=== PATIENT | female | born 1945 | race African-American/Black ===

== ENCOUNTER 2020-03-06 10:20 | Emergency (ER) | payer MEDICAID, MEDICARE ==
[~2020-03-06] VITALS: Ht 165.1 cm; Wt 82.0 kg
[2020-03-06] MEDS ORDERED: fentaNYL PF VIAL 100 MCG/2 ML VIAL IV PRN (11:15)
[2020-03-06 11:21] LABS: BASO % 0 % (0-3); EOS # 0.1 x10^3/uL (0.0-0.7); EOS % 1 % (0-3); HEMATOCRIT 34.6 % (36.0-47.0); HEMOGLOBIN 11.5 g/dL (12.0-15.5); LYMPH % 41 % (24-48); MEAN CORPUSCULAR HEMOGLOBIN 26 pg (25-35); MEAN CORPUSCULAR HGB CONC 33 g/dL (31-37); MEAN CORPUSCULAR VOLUME 77 fL (79-100); MONO # 0.5 x10^3/uL (0.0-1.1); MONO % 7 % (0-9); NEUT # 3.7 x10^3/uL (1.8-7.7); NEUT % 50 % (31-73); PLATELET COUNT 289 x10^3/uL (140-400); RED BLOOD COUNT 4.49 x10^6/uL (3.50-5.40); WHITE BLOOD COUNT 7.3 x10^3/uL (4.0-11.0)
[2020-03-06 11:33] LABS: PROTHROMBIN TIME PATIENT 13.3 SEC (11.7-14.0)
[2020-03-06 11:40] LABS: CREATININE 1.5 mg/dL (0.6-1.0); POTASSIUM 3.3 mmol/L (3.5-5.1)
[2020-03-06 11:45] LABS: ALBUMIN 3.3 g/dL (3.4-5.0); ALBUMIN/GLOBULIN RATIO 0.8 (1.0-1.7); MAGNESIUM 2.3 mg/dL (1.8-2.4); TOTAL BILIRUBIN 0.2 mg/dL (0.2-1.0); TOTAL PROTEIN 7.7 g/dL (6.4-8.2)
[2020-03-06 11:51] LABS: D-DIMER 1.02 ug/mlFEU (0.00-0.50)
--- NOTE | 2020-03-06 12:02 | RAD ---
PORTABLE CHEST 1V History: Reason: chest pain Comparison: August 03, 2007 Findings: No consolidation or pleural effusion. Normal heart size. No pneumothorax. Increased density overlying the left chest likely related to overlying structures. Prior median sternotomy. Postop changes left axilla. Impression: 1. No acute cardiopulmonary process. Electronically signed by: Eliel Chand DO (03/06/2020 11:59 AM) [id number]
--- NOTE | 2020-03-06 12:07 | ED.ADGEN ---
Past Medical History Past Medical History: Diabetes-Type II, High Cholesterol, Hypertension, MA Additional Past Medical Histor: neoplasm- pituitary gland, malignant neoplasm of breast Past Surgical History: Coronary Bypass Surgery Smoking Status: Never Smoker Alcohol Use: None Adult General Chief Complaint Chief Complaint: CHEST PAIN HPI HPI Patient is a 74 year old with chest pain since waking up this morning. His pain is substernal and is and epigastric as sharp, has gotten worse. No other symptoms, no injuries or cough. Denies diaphoresis, shortness of breath, lightheadedness, nausea. Has a history of MA but cannot recall if this pain is similar. Review of Systems Review of Systems Constitutional: Denies fever or chills. [] Eyes: Denies change in visual acuity. [] HENT: Denies nasal congestion or sore throat. [] Respiratory: Denies cough or shortness of breath. [] Cardiovascular: Chest pain GI: Denies abdominal pain, nausea, vomiting, bloody stools or diarrhea. [] : Denies dysuria. [] Musculoskeletal: Denies back pain or joint pain. [] Integument: Denies rash. [] Neurologic: Denies headache, focal weakness or sensory changes. [] Endocrine: Denies polyuria or polydipsia. [] Lymphatic: Denies swollen glands. [] Psychiatric: Denies depression or anxiety. [] Current Medications Current Medications Current Medications Medications (Trade) Dose Ordered Sig/Jennifer Start Time Stop Time Status Last Admin Dose Admin Fentanyl Citrate (Fentanyl 2ml Vial) 25 mcg PRN Q15MIN PRN 03/06/20 11:15 03/07/20 11:14 Allergies Allergies Allergies Coded Allergies Type Severity Reaction Last Updated Verified Penicillins Allergy Unknown 03/06/20 Yes atorvastatin Allergy Unknown 03/06/20 Yes gabapentin Allergy Unknown 03/06/20 Yes metformin Allergy Unknown 03/06/20 Yes Physical Exam Physical Exam Constitutional: Well developed, well nourished, no acute distress, non-toxic appearance. [] HENT: Normocephalic, atraumatic, bilateral external ears normal, oropharynx moist, no oral exudates, nose normal. [] Eyes: PERRLA, EOMI, conjunctiva normal, no discharge. [] Neck: Normal range of motion, no tenderness, supple, no stridor. [] Cardiovascular:Heart rate regular rhythm, no murmur [] Lungs & Thorax: Bilateral breath sounds clear to auscultation [] Abdomen: Bowel sounds normal, soft, no tenderness, no masses, no pulsatile masses. [] Skin: Warm, dry, no erythema, no rash. [] Back: No tenderness, no CVA tenderness. [] Extremities: No tenderness, no cyanosis, no clubbing, ROM intact, no edema. [] Neurologic: Alert and oriented X 3, normal motor function, normal sensory function, no focal deficits noted. [] Psychologic: Affect normal, judgement normal, mood normal. [] Current Patient Data Vital Signs Vital Signs Date Time Temp Pulse Resp B/P (MAP) Pulse Ox O2 Delivery O2 Flow Rate FiO2 03/06/20 14:56 64 16 135/64 (87) 96 Room Air 03/06/20 10:36 99.2 99.2 Lab Values Laboratory Tests Test 03/06/20 11:13 03/06/20 14:23 White Blood Count 7.3 x10^3/uL (4.0-11.0) Red Blood Count 4.49 x10^6/uL (3.50-5.40) Hemoglobin 11.5 g/dL (12.0-15.5) L Hematocrit 34.6 % (36.0-47.0) L Mean Corpuscular Volume 77 fL (79-100) L Mean Corpuscular Hemoglobin 26 pg (25-35) Mean Corpuscular Hemoglobin Concent 33 g/dL (31-37) Red Cell Distribution Width 19.0 % (11.5-14.5) H Platelet Count 289 x10^3/uL (140-400) Neutrophils (%) (Auto) 50 % (31-73) Lymphocytes (%) (Auto) 41 % (24-48) Monocytes (%) (Auto) 7 % (0-9) Eosinophils (%) (Auto) 1 % (0-3) Basophils (%) (Auto) 0 % (0-3) Neutrophils # (Auto) 3.7 x10^3/uL (1.8-7.7) Lymphocytes # (Auto) 3.0 x10^3/uL (1.0-4.8) Monocytes # (Auto) 0.5 x10^3/uL (0.0-1.1) Eosinophils # (Auto) 0.1 x10^3/uL (0.0-0.7) Basophils # (Auto) 0.0 x10^3/uL (0.0-0.2) Prothrombin Time 13.3 SEC (11.7-14.0) Prothrombin Time INR 1.1 (0.8-1.1) D-Dimer (Bharati) 1.02 ug/mlFEU (0.00-0.50) H Sodium Level 140 mmol/L (136-145) Potassium Level 3.3 mmol/L (3.5-5.1) L Chloride Level 104 mmol/L (98-107) Carbon Dioxide Level 29 mmol/L (21-32) Anion Gap 7 (6-14) Blood Urea Nitrogen 16 mg/dL (7-20) Creatinine 1.5 mg/dL (0.6-1.0) H Estimated GFR (Cockcroft-Gault) 41.0 BUN/Creatinine Ratio 11 (6-20) Glucose Level 208 mg/dL (70-99) H Calcium Level 9.0 mg/dL (8.5-10.1) Magnesium Level 2.3 mg/dL (1.8-2.4) Total Bilirubin 0.2 mg/dL (0.2-1.0) Aspartate Amino Transferase (AST) 11 U/L (15-37) L Alanine Aminotransferase (ALT) 11 U/L (14-59) L Alkaline Phosphatase 66 U/L (46-116) Troponin I Quantitative < 0.017 ng/mL (0.000-0.055) < 0.017 ng/mL (0.000-0.055) TV-Hem-B-Type Natriuretic Peptide 80 pg/mL (0-449) Total Protein 7.7 g/dL (6.4-8.2) Albumin 3.3 g/dL (3.4-5.0) L Albumin/Globulin Ratio 0.8 (1.0-1.7) L Lipase 148 U/L (73-393) Laboratory Tests 03/06/20 11:13 Laboratory Tests 03/06/20 11:13 EKG EKG Normal sinus rhythm, left axis deviation, T wave inversions in V2 V3 V4 5 no ectopy, no ST elevation or depression [] Interpretation Time: 1030 Radiology/Procedures Radiology/Procedures PORTABLE CHEST 1V History: Reason: chest pain Comparison: August 03, 2007 Findings: No consolidation or pleural effusion. Normal heart size. No pneumothorax. Increased density overlying the left chest likely related to overlying structures. Prior median sternotomy. Postop changes left axilla. Impression: 1. No acute cardiopulmonary process. [] Course & Med Decision Making Course & Med Decision Making Pertinent Labs and Imaging studies reviewed. (See chart for details) Negative troponin III hours apart and then restriction, chest pain resolved. Pain likely musculoskeletal in order. Given return precautions [] Dragon Disclaimer Dragon Disclaimer This electronic medical record was generated, in whole or in part, using a voice recognition dictation system. Departure Departure Impression: Primary Impression: Chest pain Disposition: HOME, SELF-CARE Condition: STABLE Referrals: [facility] (PCP) Patient Instructions: Chest Pain (Nonspecific), [id number] MATTEO MANCERA MD Mar 06, 2020 12:07
--- NOTE | 2020-03-06 15:23 | EKG ---
[facility] [address] [place] [address] Test Date: 2020-03-06 Test Time: 10:28:38 Pat Name: RASHIDA PAIGE Department: Room: Gender: F Waste Handling Technician: : 1945 Requested By: MATTEO MANCERA Order Number: [id number] Reading MD: Measurements Intervals [place] Rate: 66 P: 38 PA: 236 QRS: -1 QRSD: 92 T: 118 QT: 424 QTc: 446 Interpretive Statements SINUS RHYTHM PROLONGED PA INTERVAL LEFTWARD AXIS T ABNORMALITY IN ANTERIOR LEADS LATERAL LEADS ABNORMAL ECG RI6.01 No previous ECG available for comparison
[2020-03-06 15:26] VITALS: BP 151/79
== END 2020-03-06 16:18 | disposition home or self-care (01) ==
LOC: ER 10:20
DX: R07.2 Precordial pain (principal); R10.13 Epigastric pain; E11.9 Type 2 diabetes mellitus without complications; I10 Essential (primary) hypertension; E78.00 Pure hypercholesterolemia, unspecified; I25.2 Old myocardial infarction; Z95.1 Presence of aortocoronary bypass graft; Z88.0 Allergy status to penicillin; Z88.8 Allergy status to other drugs, medicaments and biological substances
CPT/HCPCS: 36415; 71045; 80053; 83690; 83735; 83880; 84484; 85025; 85379; 85610; 93005; 99285